=== PATIENT | female | born 1990 | race Caucasian/White ===

== ENCOUNTER 2018-10-23 15:32 | Emergency (ER) | payer MEDICAID ==
[~2018-10-23] VITALS: Ht 160 cm; Wt 83.5 kg
[2018-10-23 15:55] VITALS: BP 109/80
--- NOTE | 2018-10-23 16:33 | NUR ---
DR. SMITH AT BEDSIDE FOR EVAL.
--- NOTE | 2018-10-23 17:15 | NUR ---
PT IV LINE ESTABLISHED, L AC G18.
[2018-10-23] MEDS ORDERED: IOHEXOL-350 100 ML VIAL IV ONE (17:17)
[2018-10-23] MEDS ORDERED: IV NS 0.9% 250 ML IV ONE (17:17)
[2018-10-23] MEDS ORDERED: CT SWABBABLE VALVE TRANS SET 1 EA INFUS.SET MC ONE (17:17)
--- NOTE | 2018-10-23 17:18 | NUR ---
PT WHEELED TO CT SCAN.
--- NOTE | 2018-10-23 18:45 | NUR ---
Patient discharged to home in stable condition. Written and verbal after care instructions given. Patient verbalizes understanding of instruction.
--- NOTE | 2018-10-23 18:45 | NUR ---
IV removed. Catheter intact and site benign. Pressure and 4x4 applied to site. No bleeding noted.
== END 2018-10-23 18:46 | disposition home or self-care (01) ==
LOC: ER 15:40
DX: R51 Headache (principal); Z87.891 Personal history of nicotine dependence
CPT/HCPCS: 70496; 70498; 84703; 99284; J7050; Q9967